=== PATIENT | male | born 1965 | race Caucasian/White ===

== ENCOUNTER → 2016-05-20 | Outpatient (CLI) | payer BC ==
[~2016-05-20] MED LIST: VICODIN 5/500 T1 TAB PO; VOLTAREN75 MG PO
[2016-05-20 11:57] LABS: LYMPH # 1.5 K/mm3 (0.7-4.5); LYMPH % 20.8 % (10-50)
[2016-05-20 12:17] LABS: BUN 14 mg/dL (7-18)
[2016-05-20 12:18] LABS: GFR (ESTIMATED) 79 ML/MIN (>60)
== END ==
LOC: LAB 11:46
PROVIDERS: Surgery
DX: Z01.818 Encounter for other preprocedural examination (principal)